=== PATIENT | female | born 1990 | race Two or more races ===

== ENCOUNTER 2020-05-12 13:50 | Outpatient (REF) | payer OTHER, SELFPAY ==
--- NOTE | ~2020-05-12 | US_ITS ---
EXAMINATION: US SOFT TISSUE OF THE NECK CLINICAL INFORMATION: Lump on left side of neck below the ear. COMPARISON: None TECHNIQUE: Linear transducer grayscale and color Doppler examination of the left neck inferior to left ear. FINDINGS: There is a 3.0 cm long x1.9 cm wide x 0.7 cm AP hypoechoic area within the left palpable infra-articular region. There is peripheral vascularity seen. Likely it has a thick wall. This may represent an infected sebaceous cyst or a lymph node. No additional lesions seen. US/US soft tiss head and/or neck IMPRESSION: Likely infected lymph node or sebaceous cyst in the subcutaneous soft tissues measuring 3.0 cm in length. Recommend ultrasound-guided fine-needle aspiration.
[2020-05-12 14:42] LABS: MANUAL DIFF FLAG NO
[2020-05-12 14:45] LABS: Basophils Percent Auto 0.3 % (0-2); Eosinophils Absolute Auto 0.1 X10*3/uL (0.0-0.4); Hematocrit 39.6 % (37-47); Hemoglobin 13.1 g/dl (12.0-16.0); Imm Gran Abs Auto 0.01 X10*3/uL (0.00-0.03); Imm Gran Pct Auto 0.2 % (0.0-0.4); Lymphocytes Percent Auto 35.1 % (20-40); Mean Corpuscular HGB Conc 33.1 g/dl (31.0-35.0); Mean Corpuscular Hemoglobin 33.1 pg (27.0-33.0); Mean Platelet Volume 10.8 fL (9.4-12.3); Monocytes Absolute Auto 0.2 X10*3/uL (0.1-1.2); Monocytes Percent Auto 4.2 % (2-11); Neutrophils Absolute Auto 3.4 X10*3/uL (2.0-8.3); Neutrophils Percent Auto 59.2 % (45-73); Platelet Count 196 X10*3/uL (160-400); Red Blood Count 3.96 X10*6/uL (4.20-5.50); Red Cell Distribution Width 12.7 % (11.0-16.0); White Blood Count 5.7 X10*3/uL (4.8-10.8)
[2020-05-12 15:07] LABS: Alanine Aminotransferase 15 U/L (0-31); Albumin Level 4.4 g/dL (3.5-5.0); Alkaline Phosphatase 65 U/L (39-117); Anion Gap 10 (12-20); Aspartate Amino Transferase 14 U/L (5-31); Bilirubin Total 1.7 mg/dL (0.0-1.0); Blood Urea Nitrogen 9 mg/dL (9-16); Calcium 9.2 mg/dL (8.4-10.2); Carbon Dioxide 30 mmol/L (22-29); Chloride 108 mmol/L (96-108); Estimated Glomerular Filt Rate > 60; Glucose Random 76 mg/dL (60-115); Potassium 4.2 mmol/L (3.3-5.1); Sodium 144 mmol/L (135-145); Total Protein 6.8 g/dL (6.5-8.0)
== END 2020-05-12 13:51 | disposition home or self-care (01) ==
LOC: HO.US 13:50
PROVIDERS: Visit Provider Internal Medicine
DX: R22.1 Localized swelling, mass and lump, neck (principal)
CPT/HCPCS: 36415; 76536; 80053; 85025

== ENCOUNTER → 2020-05-13 10:10 | Outpatient (BNVA) | payer OTHER, SELFPAY | PROVIDERS: PCP Internal Medicine; Visit Provider Surgery | DX: L02.01 Cutaneous abscess of face (principal) | CPT/HCPCS: 99202 ==

== ENCOUNTER → 2020-05-19 15:21 | Outpatient (BNVA) | payer OTHER, SELFPAY | PROVIDERS: PCP Internal Medicine; Visit Provider Surgery | DX: L02.01 Cutaneous abscess of face (principal) | CPT/HCPCS: 99212 ==

== ENCOUNTER → 2020-06-02 14:19 | Outpatient (BNVA) | payer OTHER, SELFPAY | PROVIDERS: PCP Internal Medicine; Visit Provider Surgery | DX: L02.01 Cutaneous abscess of face (principal) | CPT/HCPCS: 99212 ==

== ENCOUNTER 2020-06-14 07:37 | Day surgery (SDC) | payer OTHER, SELFPAY ==
[2020-06-04 20:02] VITALS: BMI 23.1
[2020-06-14 08:13] VITALS: BP 99/61; PULSE 68; RESP 16; TEMP 36.9; O2SAT 100
[2020-06-14] MEDS: Lactated Ringers 1,000 ML 100 ML IVCONT (08:25)
[2020-06-14 08:43] LABS: UPreg QC Valid YES; Urine Pregnancy NEGATIVE (NEGATIVE)
--- NOTE | 2020-06-14 09:10 | MHC.SHP ---
Pre-Procedural Eval Section A The patient is an INPATIENT: No Changes since office visit: Yes Patient answered all questions; No Cold of Flu in the past 2 weeks, No New Medical Problems and No Changes in Medication The History & Physical has been completed within 30 days and I have reviewed it.: Yes Section B Chief Complaint: Abscess of Face Allergies: Allergies Allergy/AdvReac Type Severity Reaction Status Date / Time No Known Allergies Allergy Verified 06/02/20 14:26 Plan Diagnosis/Plan: Unchanged I have reviewed the history and physical and performed a pertinent physical examination on my patient. No changes have occurred unless specified.
--- NOTE | 2020-06-14 09:19 | P.CONAN_ITS ---
[facility] Active Problems Active Problems: All Active Problems (Updated 06/04/20 @ 19:59 by Giovanna Machado RN) Abscess of face (Acute) Past Medical History Medical History Asthma Smoker Family History Family History Maternal Grandmother History of breast cancer Paternal Grandmother History of blood disorder Family history of problems with anesthesia: No Surgical History Surgical History History of cholecystectomy History of dilatation and curettage History of Problems with Anesthesia: No Social History Social History Alcohol intake: never Smoking Status: Current every day smoker Packs Per Day: 0.5 Cigarettes Per Day: 10.0 Years Smoked: 10 Patient Interested in Nicotine Replacement: Yes Patient Given Instructions on How to Stop Smoking: Yes Date Education Initiated: 06/04/20 Second Hand Smoke Exposure: No Use of substances other than those prescribed or required for medical reasons: No Advance Directives: No Advance Directives Information Provided: No Advance Directives on File: No Recently lost weight without trying: No Meds Allergies Allergy/AdvReac Type Severity Reaction Status Date / Time No Known Allergies Allergy Verified 06/02/20 14:26 Active Medications: Current Medications Generic Name Dose Route Start Last Admin Trade Name Osvaldoq PRN Reason Stop Dose Admin Lactated Ringer's 1,000 mls @ 100 mls/hr 06/14/20 08:00 06/14/20 08:25 Lr IVCONT 100 mls/hr .Q10H JACIEL Administration Exam Exam Date and Time: June 14, 202019 Height,Weight and Vital Signs: Height 5 ft 4 in Weight 61.235 kg Last Vital Signs Temp 98.4 F 06/14/20 08:13 Pulse 68 06/14/20 08:13 Resp 16 06/14/20 08:13 BP 99/61 06/14/20 08:13 Pulse Ox 100 06/14/20 08:13 Pertinent Lab Results Pertinent Lab Results: Laboratory Tests 06/14/20 08:30 Urine Test NEGATIVE Airway Mallampati Class: I TM Dist: >3cm Neck ROM: Full Heart: ok Lungs: ok Assessment and Plan Assessment Anesthesia Assessment: Anesthesia Plan Discussed and Chart Reviewed Final Anesthetic Review NPO: Yes ASA Class: II Final Preanesthetic Review: No Changes in Pt Med Stat, Meds/Allgs Chart Reviewed, Consent Obtained/Reviewed and Anes Risks/Benef Reviewed Patient Risk: Low Procedure Risk: Low Anesthetic Plan Anesthetic Plan: GA
--- NOTE | 2020-06-14 10:08 | P.OP_ITS ---
Operative Note Operative Note Date of Service: 06/14/20 Narrative: Preoperative diagnosis: Left facial cyst Postoperative diagnosis: Same Procedure: Excision left facial cyst Surgeon: Tor Govea MD Tooling Inspector: Meghann Ferreira PA-C Anesthesia: General LMA Indications for procedure: 29-year-old female patient with a persistently draining cyst of the left face presenting for wide excision. Operative findings: Cyst located below the left ear measuring approximately 2 by 0.5 cm with multiple punctum elongated below the ear lobe. Specimen: Cyst left face Estimated blood loss: 5 mL Complications: None Procedure details: Patient was brought to the OR placed in supine position. After administering general anesthesia she was placed with her head turned to the right. The cyst and left face were prepped with Betadine and draped in a sterile fashion. A surgical time-out was called and consent confirmed. Patient received preoperative antibiotics and Venodyne boots were in place. Local anesthesia consisting of 0.5% Sensorcaine with epinephrine was infiltrated around the cyst. An elliptical incision oriented longitudinally was then created around the cyst wall. This was carried down through subcutaneous tissue around the cyst wall. The cyst was followed up more superiorly heading towards the ear and excised completely. This was sent to pathology for further examination. After assuring adequate hemostasis dermis was reapproximated using interrupted 4-0 Polysorb sutures. Skin was then closed using interrupted 5 0 nylon sutures. This was done a running fashion. Sterile dressings were then applied. The patient tolerated the procedure well. Sponge, instrument, needle counts reported as correct. The patient was transferred to PACU in stable condition.
--- NOTE | 2020-06-14 10:13 | PM.OP ---
Brief Operative Note Date of Service: 06/14/20 <RENÉ Barnard Last Filed: 06/14/20 10:14> Pre-op diagnosis: cyst of face, left <RENÉ Barnard Last Filed: 06/14/20 10:14> Post-op diagnosis: same <RENÉ Barnard Last Filed: 06/14/20 10:14> Procedure: excision of left facial cyst <RENÉ Barnard Last Filed: 06/14/20 10:14> Surgeon: ALVIN SCHAFER MD <RENÉ Barnard Last Filed: 06/14/20 10:14> Anesthesia: GLMA <RENÉ Barnard Last Filed: 06/14/20 10:14> Dry Cleaning Checker: Meghann Ferreira <RENÉ Barnard Last Filed: 06/14/20 10:14> Estimated blood loss (mL): 5 <RENÉ Barnard Last Filed: 06/14/20 10:14> Pathology: other (FACIAL CYST) <RENÉ Banrard Last Filed: 06/14/20 10:14> Condition: stable <RENÉ Barnard Last Filed: 06/14/20 10:14> Disposition: PACU <RENÉ Barnard Last Filed: 06/14/20 10:14>
[2020-06-14 10:21] VITALS: BP 113/70; PULSE 77; RESP 20; TEMP 36.5; O2SAT 100
[2020-06-14 10:25] VITALS: BP 97/67; PULSE 74; RESP 18; O2SAT 100
[2020-06-14 10:30] VITALS: BP 106/67; PULSE 61; RESP 18; O2SAT 100
[2020-06-14 10:35] VITALS: BP 114/63; PULSE 53; RESP 18; O2SAT 100
[2020-06-14] MEDS: Acetaminophen 325 MG TABLET 650 MG PO (10:35)
[2020-06-14 10:47] VITALS: BP 100/55; PULSE 55; RESP 18; O2SAT 100
== END 2020-06-14 11:18 | disposition home or self-care (01) ==
PROVIDERS: Anesthesiology; PCP Internal Medicine; Visit Provider Surgery
PROC: (CPT 11442; principal; 2020-06-14 09:10)
DX: L72.0 Epidermal cyst (principal); J45.909 Unspecified asthma, uncomplicated
CPT/HCPCS: 11442; 12051; 81025; 88304; J0690; J1100; J2250; J2405; J3010

== ENCOUNTER → 2020-06-25 11:44 | Outpatient (BNVA) | payer MEDICAID, SELFPAY | PROVIDERS: PCP Internal Medicine; Visit Provider Surgery | DX: Z48.817 Encounter for surgical aftercare following surgery on the skin and subcutaneous tissue (principal); Z87.2 Personal history of diseases of the skin and subcutaneous tissue | CPT/HCPCS: 99212 ==

== ENCOUNTER 2021-06-16 13:36 | Outpatient (REF) | payer OTHER, SELFPAY ==
[2021-06-16 14:31] LABS: Rheumatoid Factor < 15.0 IU/mL (<15.0)
[2021-06-16 15:02] LABS: Erythrocyte Sedimentation Rate 3 MM/HR (0-20)
[2021-06-17 12:52] LABS: Anti Nuclear Antibody Screen NEGATIVE (NEGATIVE)
[2021-06-20 23:47] LABS: Cyclic Citrullinated Peptide <16 UNITS
== END 2021-06-16 13:37 | disposition home or self-care (01) ==
LOC: HO.LAB 13:36
PROVIDERS: PCP Internal Medicine; Visit Provider Internal Medicine
DX: M13.0 Polyarthritis, unspecified (principal); M62.81 Muscle weakness (generalized); M79.7 Fibromyalgia
CPT/HCPCS: 36415; 85652; 86038; 86039; 86200; 86431

== ENCOUNTER 2021-07-21 09:05 | Outpatient (REF) | payer OTHER, SELFPAY ==
--- NOTE | ~2021-07-21 | XR_ITS ---
EXAMINATION: XR LUMBOSACRAL SPINE CLINICAL INFORMATION: Low back pain. COMPARISON: None TECHNIQUE: Three views of the lumbosacral spine. FINDINGS: The vertebral bodies and posterior elements are normal. The disc spaces are preserved and the vertebral alignment is normal. The paraspinal soft tissues are normal. Right upper quadrant surgical clips. XR/XR lumbar spine 2-3V IMPRESSION: Unremarkable examination.
--- NOTE | ~2021-07-21 | XR_ITS ---
EXAMINATION: XR CHEST CLINICAL INFORMATION: Cough. COMPARISON: None. TECHNIQUE: 2 views of the chest were obtained. FINDINGS: Normal appearance of the cardiomediastinal silhouette. No focal airspace opacities, pleural effusions or pneumothorax. No acute osseous abnormalities. Right upper quadrant surgical clips. XR/XR chest 2V IMPRESSION: No acute cardiopulmonary findings.
[2021-07-21 10:39] LABS: MANUAL DIFF FLAG NO
[2021-07-21 11:33] LABS: Basophils Percent Auto 0.3 % (0-2); Eosinophils Absolute Auto 0.1 X10*3/uL (0.0-0.4); Eosinophils Percent Auto 0.8 % (0-4); Hematocrit 41.6 % (37.0-47.0); Hemoglobin 13.9 g/dl (12.0-16.0); Imm Gran Abs Auto 0.02 X10*3/uL (0.00-0.03); Imm Gran Pct Auto 0.3 % (0.0-0.4); Lymphocytes Absolute Auto 1.3 X10*3/uL (1.2-4.9); Lymphocytes Percent Auto 21.2 % (20-40); Mean Corpuscular HGB Conc 33.4 g/dl (31.0-35.0); Mean Corpuscular Volume 98.8 fL (80.0-98.0); Mean Platelet Volume 11.9 fL (9.4-12.3); Monocytes Absolute Auto 0.3 X10*3/uL (0.1-1.2); Neutrophils Absolute Auto 4.6 x10*3/uL (2.0-8.3); Neutrophils Percent Auto 73.4 % (45-73); Platelet Count 158 X10*3/uL (160-400); Red Blood Count 4.21 X10*6/uL (4.20-5.50); Red Cell Distribution Width 12.2 % (11.0-16.0); White Blood Count 6.3 X10*3/uL (4.8-10.8)
[2021-07-21 11:56] LABS: C Reactive Protein 0.04 mg/dL (< or = 0.50)
[2021-07-21 12:19] LABS: TSH reflex Free T4 0.56 uIU/mL (0.32-4.0)
== END 2021-07-21 09:06 | disposition home or self-care (01) ==
LOC: HO.LAB 09:05
PROVIDERS: PCP Internal Medicine; Visit Provider Internal Medicine Rheumatology
DX: M25.50 Pain in unspecified joint (principal); M79.641 Pain in right hand; M79.642 Pain in left hand; R05.9 Cough, unspecified; M54.50 Low back pain, unspecified; M79.7 Fibromyalgia
CPT/HCPCS: 36415; 71046; 72100; 84443; 85025; 86140; 99202

== ENCOUNTER → 2022-01-04 11:09 | Outpatient (BNVA) | payer OTHER, SELFPAY | PROVIDERS: PCP Internal Medicine; Visit Provider Internal Medicine Rheumatology | DX: M79.7 Fibromyalgia (principal); M54.50 Low back pain, unspecified; Z79.899 Other long term (current) drug therapy | CPT/HCPCS: 99212 ==

== ENCOUNTER → 2022-08-07 10:10 | Outpatient (BNVA) | payer OTHER, SELFPAY | PROVIDERS: PCP Internal Medicine; Visit Provider Internal Medicine Rheumatology | DX: M54.50 Low back pain, unspecified (principal); M79.7 Fibromyalgia | CPT/HCPCS: 99212 ==

== ENCOUNTER 2022-10-04 15:54 | Outpatient (REF) | payer OTHER, SELFPAY ==
[2022-10-04 16:16] LABS: MANUAL DIFF FLAG NO
[2022-10-04 17:01] LABS: Basophils Percent Auto 0.3 % (0-2); Eosinophils Absolute Auto 0.1 X10*3/uL (0.0-0.4); Eosinophils Percent Auto 1.5 % (0-4); Hematocrit 41.5 % (37.0-47.0); Hemoglobin 13.9 g/dl (12.0-16.0); Imm Gran Abs Auto 0.02 X10*3/uL (0.00-0.03); Imm Gran Pct Auto 0.3 % (0.0-0.4); Lymphocytes Absolute Auto 1.7 X10*3/uL (1.2-4.9); Lymphocytes Percent Auto 25.6 % (20-40); Mean Corpuscular HGB Conc 33.5 g/dl (31.0-35.0); Mean Corpuscular Hemoglobin 32.7 pg (27.0-33.0); Mean Corpuscular Volume 97.6 fL (80.0-98.0); Mean Platelet Volume 10.9 fL (9.4-12.3); Monocytes Absolute Auto 0.3 X10*3/uL (0.1-1.2); Monocytes Percent Auto 3.9 % (2-11); Neutrophils Absolute Auto 4.5 x10*3/uL (2.0-8.3); Neutrophils Percent Auto 68.4 % (45-73); Platelet Count 192 X10*3/uL (160-400); Red Blood Count 4.25 X10*6/uL (4.20-5.50); Red Cell Distribution Width 12.6 % (11.0-16.0); White Blood Count 6.6 X10*3/uL (4.8-10.8)
[2022-10-04 17:16] LABS: Alanine Aminotransferase 16 U/L (0-31); Alkaline Phosphatase 57 U/L (39-117); Anion Gap 8 (12-20); Aspartate Amino Transferase 16 U/L (5-31); Bilirubin Total 0.7 mg/dL (0.0-1.0); Blood Urea Nitrogen 11 mg/dL (9-16); Calcium 9.6 mg/dL (8.4-10.2); Carbon Dioxide 29 mmol/L (22-29); Chloride 102 mmol/L (96-108); Cholesterol 167 mg/dL; Estimated Glomerular Filt Rate > 60; Glucose Random 80 mg/dL (60-115); HDL Cholesterol 36 mg/dL; LDL Cholesterol Calculated 109 mg/dl; Potassium 3.7 mmol/L (3.3-5.1); Sodium 135 mmol/L (135-145); Total Protein 6.8 g/dL (6.5-8.0); Triglycerides 112 mg/dL
[2022-10-04 18:22] LABS: CT PCR NOT DETECTED (Not Detect.); NG PCR NOT DETECTED (Not Detect.)
[2022-10-06 03:35] LABS: Syphilis Screen Nonreactive (Nonreactive)
[2022-10-06 03:51] LABS: HIV AB/AG Nonreactive (Nonreactive); HIV Num 1 0.07 S/CO (0.00-0.99)
[2022-10-06 17:38] LABS: TS Negative Control Passed; TS Panel A 0; TS Panel B 0; TS Positive Control Passed; TSpotTB Negative (Negative)
== END 2022-10-04 15:55 | disposition home or self-care (01) ==
LOC: HO.LAB 15:54
PROVIDERS: PCP Internal Medicine; Visit Provider Internal Medicine
DX: Z00.00 Encounter for general adult medical examination without abnormal findings (principal); E78.00 Pure hypercholesterolemia, unspecified; J45.909 Unspecified asthma, uncomplicated; Z11.3 Encounter for screening for infections with a predominantly sexual mode of transmission; Z72.0 Tobacco use; J82.83 Eosinophilic asthma
CPT/HCPCS: 0353U; 80053; 80061; 85025; 86481; 86780; 87389